=== PATIENT | male | born 1960 | race Caucasian/White ===

== ENCOUNTER → 2020-11-22 08:19 | Outpatient (CLI) | payer OTHER, SELFPAY ==
--- NOTE | 2020-11-22 08:26 | US_ITS ---
PROCEDURE: US LIVER CLINICAL INDICATION: ELEVATED LIVER ENZYMES COMPARISON: No exams were available for comparison FINDINGS: PANCREAS: Unremarkable. No obvious mass or abnormal fluid collection. No ductal dilatation LIVER: Diffuse increased echogenicity of the liver with poor through transmission of sound consistent with hepatic steatosis. No focal liver lesion demonstrated. There is appropriate direction of blood flow within non dilated portal vein. RIGHT KIDNEY: Unremarkable. Normal size and echogenicity. No hydronephrosis GALLBLADDER: No gallstones, gallbladder wall thickening, pericholecystic fluid, or biliary dilatation. IMPRESSION: Hepatic steatosis otherwise negative Dictated by: Edy Sin MD 11/22/2020 09:27 Edy Sin MD in [place] 11/22/2020 09:27
== END ==
PROVIDERS: PCP Internal Medicine Endocrinology, Diabetes & Metabolism; Visit Provider Nurse Practitioner Family
DX: R74.8 Abnormal levels of other serum enzymes (principal)
CPT/HCPCS: 76705

== ENCOUNTER → 2022-04-08 09:47 | Outpatient (CLI) | payer OTHER, SELFPAY ==
--- NOTE | 2022-04-08 | CA_ITS ---
FINAL REPORT TECHNIQUE: Color Doppler, duplex Doppler and compression sonography of the left lower extremity deep venous systems was performed. CLINICAL HISTORY: Left calf pain for 3 weeks. FINDINGS: There is no evidence of deep venous thrombosis from the level of the groin to the calf. The veins are patent and compressible. IMPRESSION: No evidence of deep venous thrombosis left lower extremity. Reviewed, Interpreted and Dictated by Jonah Odell III, MD Transcribed by Billie Wall Authenticated and [facility]
== END ==
PROVIDERS: PCP Family Medicine; Visit Provider Nurse Practitioner Family
DX: R09.89 Other specified symptoms and signs involving the circulatory and respiratory systems (principal)
CPT/HCPCS: 93971

== ENCOUNTER 2022-04-15 07:50 | Day surgery (SDC) | payer OTHER, SELFPAY ==
[2022-04-15] VITALS (17 sets, daily range): BP systolic 116–221; BP diastolic 62–109; PULSE 59–83; RESP 16–20; TEMP 36.6–36.8; O2SAT 92–98; BMI 31.4
--- NOTE | 2022-04-15 07:31 | IR_ITS ---
APPROVED REPORT Patient Location: Outpatient Irrigator Overhead: OTILIO Dunham RT (R) PROCEDURES Catheter placement to the left common femoral artery Left common femoral artery antegrade angiogram with unilateral runoff to the left foot Informed consent was obtained prior to the procedure. COMPLICATIONS NONE Estimated Blood Loss: LESS THAN 10 ML TECHNIQUE 1% lidocaine used anesthetize right groin the right femoral artery was accessed via Salinger technique and a 5 Micronesian sheath was placed in the right femoral artery. A rim catheter was advanced to the distal abdominal aorta and then used to cannulate the left common iliac artery followed by an advantage wire. The catheter was then advanced to the left external iliac artery where external iliac artery antegrade angiography was performed followed by left iliofemoral runoff. At the end the procedure the apparatus was removed the patient was transferred to the postop putting in stable condition for sheath removal ANGIOGRAPHIC RESULTS Left common iliac artery is patent Left external iliac artery is a small caliber vessel with mild atheromatous plaque proximal 20 to 30%. Left internal iliac artery is patent and also small caliber Left common femoral artery is patent and unusually small Left profunda femoris artery is patent Left superficial femoral artery is a small caliber vessel, much smaller than normal, and is patent until the mid segment in which it is then occluded with bridging collaterals and then reconstitutes approximately 70 mm downstream which then retrograde fills the majority of the superficial femoral artery. The left popliteal artery is patent and gives rise to 3 distal vessels which are also small in caliber IMPRESSION Unusually small iliofemoral arteries with a small superficial femoral artery and popliteal artery Occluded mid left SFA PLAN 1. I strongly favor medical management. Patient's small arteries make it a poor candidate for any type of percutaneous or surgical revascularization. Strongly recommend discontinuation of tobacco products 2. LDL goal less than 55 3. Unless patient develops Delta 4 5 or 6 claudication I recommend ongoing medical management. Any attempt at revascularizing the left SFA could easily knock off the collaterals and jeopardize the entire leg subjecting the patient to an [id number] amputation 4. Patient must discontinue tobacco products 5. Physical therapy Electronically signed by : Bobby Huizar MD 04/16/2022 15:07:11
[2022-04-15 07:59] LABS: Coronavirus 19, PCR Not Detected (NotDetected); Influenza A, PCR Not Detected (NotDetected); Influenza B, PCR Not Detected (NotDetected)
[2022-04-15 08:17] LABS: Anion Gap 10.3 mEq/L (5-15); Blood Urea Nitrogen 19 mg/dl (9-20); Calcium 9.3 mg/dl (8.4-10.2); Carbon Dioxide 25 mmol/L (22.0-30.0); Chloride 105 mmol/L (98-107); Creatinine Clearance Estimated 109 mL/min (50-200); Estimated Glomerular Filt Rate 76 ml/min (>60); GFR (African American) 92 ML/MIN (>60); Glucose 197 mg/dl (74-100); Potassium 4.3 mmoL/L (3.5-5.1); Sodium 136 mmol/L (136-145)
[2022-04-15 08:18] LABS: Basophils # 0.3 K/mm3 (0-0.2); Basophils % 2.1 % (0.1-2.0); Eosinophils # 0.6 K/mm3 (0.0-0.4); Eosinophils % 4.5 % (0.1-12.0); Hematocrit 50.5 % (42.0-52.0); Mean Corpuscular HGB Conc 31.6 g/dL (31.8-35.4); Mean Corpuscular Hemoglobin 31.1 pg (27.0-31.2); Mean Corpuscular Volume 98.6 fl (80-94); Mean Platelet Volume 9.1 fl (7.4-10.4); Monocytes # 0.7 K/mm3 (0.1-1.0); Monocytes % 5.5 % (1.7-9.3); Neutrophils # 7.7 K/mm3 (1.8-7.8); Neutrophils % 57.8 % (37.0-80.0); Platelet Count 272 K/mm3 (142-424); Red Blood Count 5.12 M/mm3 (4.60-6.20); Red Cell Distribution Width 13.8 % (11.5-17.5); White Blood Count 13.3 K/mm3 (4.8-10.8)
--- NOTE | 2022-04-15 14:58 | SUR.PHASEII ---
Upon discharge pt informed of 3 new prescriptions. upon teaching of medication pt stated he will not take cholesterol medication. pt informed that that is his choice as a patient but that the doctor does feel as if that will help his leg pain along with PT/OT.
== END 2022-04-15 15:00 | disposition home or self-care (01) ==
PROVIDERS: PCP Family Medicine; Visit Provider Internal Medicine
DX: I70.213 Atherosclerosis of native arteries of extremities with intermittent claudication, bilateral legs (principal); E11.9 Type 2 diabetes mellitus without complications; I11.9 Hypertensive heart disease without heart failure; F17.210 Nicotine dependence, cigarettes, uncomplicated; Z79.4 Long term (current) use of insulin; E03.9 Hypothyroidism, unspecified; Z79.899 Other long term (current) drug therapy; Z20.822 Contact with and (suspected) exposure to COVID-19; E78.5 Hyperlipidemia, unspecified
CPT/HCPCS: 36247; 36415; 75710; 80048; 85025; 99152; C1725; C1769; C1894; C9803; J1644; Q9966; U0003; U0005

== ENCOUNTER → 2022-05-07 06:29 | Outpatient (CLI) | payer OTHER, SELFPAY ==
--- NOTE | 2022-05-07 06:29 | CA_ITS ---
APPROVED REPORT EXAM: Comprehensive 2D, Doppler, and color-flow Echocardiogram Carrot Harvester: Fabiana Whittington CRT Ht: 5 ft 10 in Wt: 218lbs BSA: 2.17 BP: 172/82 mmHg Indications: Abnormal ECG, Diabetes, Hyperlipidemia, Hypertension/HDD, smoker 2D Dimensions LVOT 1.81 cm (M/F) 1.5-2.5 M-Mode Dimensions RVDd 3.10 cm (0.9-2.6) LA Diam 2.83 cm (1.9-4.0) LVDd 3.82 cm (3.5-5.7) Ao Diam 3.45 cm (2.0-3.7) LVDs 2.67 cm (3.5-5.7) IVSd 2.25 cm (0.6-1.1) PWd 0.76 cm (0.6-1.1) EF (Teich) 58.10% FS 30.10% EDV (Teich) 62.70 mL ESV (Teich) 26.30 mL LV Diastology E Decel Time 253.00 (160-240 msec) E/A Ratio 0.87 MED E' 9.00 (< 7 cm/sec) MED A' 11.20 cm/s E'/MED E' Ratio 7.96 (>14) LAT E' 10.20 (<10 cm/sec) LAT A' 9.00 cm/s E/LAT E' Ratio 7.02 (>14) Aortic Valve AO Peak GR. 6.60 mmHg Mitral Valve MV A Velocity 82.00 (40-130 cm/s) E/A Ratio 0.87 MV Decel. Time 253.00 (160-240 ms) Pulmonary Valve PV Peak Velocity 122.00 (50-150 cm/s) Tricuspid Valve TR P. Velocity 183.00 cm/s RAP Estimate 10.00 mmHg RVSP 23.50 mmHg Left Ventricle Left atrium is mildly enlarged, left ventricle is normal size mild concentric left ventricular hypertrophy, estimated ejection fraction 55% with no regional wall motion abnormality, grade 1 diastolic dysfunction seen without tissue Doppler evidence of raise left atrial pressure. Right Ventricle Right atrium and right ventricle are mildly enlarged with normal contractility. Aortic Valve Aortic valve is minimally thickened and fibrosed there is no aortic stenosis or aortic insufficiency. Mitral Valve Mitral valve grossly normal, there is trace mitral regurgitation. Tricuspid Valve Tricuspid valve grossly normal, there is trace tricuspid regurgitation, tricuspid regurgitation jet velocity is inadequate for calculation of the right ventricular systolic pressure. Pulmonic Valve Pulmonic valve is poorly visualized. Great Vessels Aortic root is normal size. Inferior vena cava is poorly visualized. Pericardium No significant pericardial effusion noted. Conclusion 1. Mild biatrial enlargement, normal left ventricular size mild concentric left ventricular hypertrophy, estimated ejection fraction 55% with no regional wall motion abnormality, grade 1 diastolic dysfunction seen without tissue Doppler evidence of raise left atrial pressure. 2. Mildly enlarged right ventricle with normal contractility. 3. Trace mitral and tricuspid regurgitation. 4. No significant pericardial effusion. 5. Inferior vena cava is poorly visualized. Electronically signed by : Jag Bolivar MD 05/08/2022 12:32:14
--- NOTE | 2022-05-07 06:29 | NM_ITS ---
APPROVED REPORT Exam: Nuclear Stress Test Indication: fatigue..abn ecg Patient Location: Outpatient Stress Tech: Teresita Boudreaux MA Tech:Alexandria Leung MEÑOPhyllis RT(R)(N) Ht: 5 ft 10 in Wt: 210 lbs HR: 67 bpm BP: 170/72 mmHg BSA: 2.13 m2 TID: 1.27 BMI: 30.1 History: fatigue..abn ecg Procedure: Patient received a 0.4 mg of intravenous Lexiscan, resting heart rate 67 bpm, resting blood pressure 170/72 mmHg, with Lexiscan maximum heart rate achived was 92 bpm which is Less than 85 % of the maximum predicted heart rate and blood pressure was 180/82 mmHg. With Lexiscan, patient denied any complaint of chest pain. Electrocardiogram Resting electrocardiogram shows sinus rhythm, with Lexiscan there is less than 1.[address] segment depression noted from the baseline EKG. The EKG portion of the Lexiscan is nondiagnostic. Cardiac Stress and Resting SPECT Images: Cardiac Stress and Resting SPECT images were obtained using technetium 99m Myoview 30.0 mCi stress and 9.77 mCi at rest. Gated SPECT for analysis of segmental wall motion and calculation of the ejection fraction also done. Prone images were also obtained. Cardiac stress and rest SPECT images show uniform myocardial activity without segmental perfusion abnormality, computer derived ejection fraction is 53% with no regional wall motion abnormality, right ventricle is normal size and contractility. Conclusion: 1. The EKG portion of the Lexiscan is nondiagnostic. 2. No scintigraphic evidence of reversible ischemia seen, computer derived ejection fraction is 53% with no regional wall motion abnormality, right ventricle is normal size and contractility. 3. Normal Lexiscan Myoview study. Electronically signed by : Jag Bolivar MD 05/08/2022 11:18:52
--- NOTE | 2022-05-07 06:29 | CA_ITS ---
APPROVED REPORT Exam: Pharmacologic Technologist: Teresita Ford, Ht: 5 ft 10 in Wt: 218 lbs BSA: 2.17 m2 HR: 65 bpm BP: 170/72 mmHg Medical History Medications: Lisinopril,,,,, Levothyroxine,,,,, Aspirin,,,,, Atorvastatin,,,,, XaRELTO,,,,, Coreg,,,,, ColCHIcine,,,,, INSULIN Degludec,,,,, Stress Test Details Test: LEXISCAN Reason for pharmacologic stress test: physical limitation. HR Resting HR: 67 bpm Max Heart Rate (APMHR): 159.581003 bpm Max HR Achieved: 92 bpm Target HR (85% APMHR): 135.736506 bpm % of APMHR: 57.86 Recovery HR: 74 bpm BP Resting BP: 170.0/72.0 mmHg Max BP: 180.0/82.0 mmHg Recovery BP: 150.0/72.0 mmHg ECG Resting ECG: NSR, RBBB, Q waves in lead I & aVL Clinical Exercise duration: 04:01 min Highest Stage Achieved: Exercise capacity: 1.0 METs Stress ECG Conclusion Symptoms: Brief SOA & coughing. No CP. Arrhythmias/Ectopy: None ST-T Changes: No significant changes. Conclusion: Unremarkable Lexiscan stress. Myoview images reported sepatately. Test Summary RECOVERY 03:00 . . 77 . 150/ 72 . . REST 06:41 . . 67 . 170/ 72 . . Stage 1 01:00 . . 81 . . . . Stage 2 01:00 . . 89 . 160/ 89 . . Stage 3 01:00 . . 86 . 180/ 82 . . Stage 4 01:00 . . 82 . 164/ 79 . . Stage 4 01:01 . . 82 . 164/ 79 . Stop exercise at 04:01 RECOVERY 01:00 . . 78 . . . . RECOVERY 02:00 . . 76 . 166/ 75 . . RECOVERY 03:00 . . 77 . 150/ 72 . . RECOVERY 03:19 . . 73 . 150/ 72 . . Electronically signed by : Jag Bolivar MD 05/08/2022 10:37:17
== END ==
PROVIDERS: PCP Family Medicine; Visit Provider Internal Medicine
DX: R94.31 Abnormal electrocardiogram [ECG] [EKG] (principal)
CPT/HCPCS: 78452; 93017; 93306; A9502; J2785

== ENCOUNTER → 2022-05-07 06:31 | Outpatient (CLI) | payer SELFPAY ==
--- NOTE | 2022-05-07 06:34 | CT_ITS ---
FINAL REPORT CLINICAL HISTORY: . screening FINDINGS: CT CORONARY CALCIUM SCORE W/O TECHNIQUE: Thin-section axial images were obtained through the heart and coronary arteries per CT coronary calcium score protocol. This study was performed with techniques to keep radiation doses as low as reasonably achievable (ALARA). Individualized dose reduction techniques using automated exposure control or adjustment of mA and/or kV according to the patient's size were employed. FINDINGS: On the axial images, there is calcification predominantly within the right coronary bed with minimal calcified plaque in the circumflex. This gives a coronary artery calcium score of 419.22 based on the Agatston scale. This coronary artery calcium score places the patient within the 76th percentile based on age and gender. The heart size is normal. There is no pleural or pericardial effusion. Limited evaluation of the lungs reveal no suspicious nodule. IMPRESSION: 76th percentile. Reviewed, Interpreted and Dictated by Ivory Sanz MD Transcribed by Daron Dior Authenticated and [facility]
== END ==
PROVIDERS: PCP Family Medicine; Visit Provider Internal Medicine
DX: R94.31 Abnormal electrocardiogram [ECG] [EKG] (principal)
CPT/HCPCS: 75571

== ENCOUNTER 2022-05-28 09:44 | Outpatient (RCR) | payer OTHER, SELFPAY | END 2022-05-28 10:45 | disposition home or self-care (01) | LOC: PT 09:44 | PROVIDERS: Visit Provider Internal Medicine | DX: I73.89 Other specified peripheral vascular diseases | CPT/HCPCS: 93668 ==

== ENCOUNTER → 2022-06-15 11:26 | Outpatient (CLI) | payer OTHER, SELFPAY ==
[2022-06-15 12:07] LABS: Basophils # 0.2 K/mm3 (0-0.2); Basophils % 1.6 % (0.1-2.0); Eosinophils # 0.5 K/mm3 (0.0-0.4); Eosinophils % 3.5 % (0.1-12.0); Hematocrit 48.5 % (42.0-52.0); Hemoglobin 15.5 g/dL (14.1-18.0); Lymphocytes # 4.2 K/mm3 (0.7-4.5); Mean Corpuscular HGB Conc 32.1 g/dL (31.8-35.4); Mean Corpuscular Hemoglobin 30.7 pg (27.0-31.2); Mean Corpuscular Volume 95.8 fl (80-94); Mean Platelet Volume 8.7 fl (7.4-10.4); Monocytes # 0.7 K/mm3 (0.1-1.0); Monocytes % 5.3 % (1.7-9.3); Neutrophils # 8.3 K/mm3 (1.8-7.8); Neutrophils % 59.6 % (37.0-80.0); Platelet Count 289 K/mm3 (142-424); Red Blood Count 5.06 M/mm3 (4.60-6.20); Red Cell Distribution Width 13.6 % (11.5-17.5); White Blood Count 13.8 K/mm3 (4.8-10.8)
[2022-06-15 12:30] LABS: Alanine Aminotransferase 30 U/L (12-78); Albumin Level 4.3 g/dl (3.5-5.0); Albumin/Globulin Ratio 1.3 (1.1-1.8); Alkaline Phosphatase 119 U/L (38-126); Amylase 49 U/L (30-110); Aspartate Amino Transferase 28 U/L (17-59); Bilirubin,Total 0.4 mg/dl (0.2-1.3); Blood Urea Nitrogen 14 mg/dl (9-20); Calcium 10.1 mg/dl (8.4-10.2); Carbon Dioxide 25 mmol/L (22.0-30.0); Chloride 96 mmol/L (98-107); Estimated Glomerular Filt Rate 98 ml/min (>60); GFR (African American) 119 ML/MIN (>60); Globulin 3.2 g/dL (1.3-3.2); Glucose 308 mg/dl (74-100); Lipase 109 U/L (23-300); Potassium 4.5 mmoL/L (3.5-5.1); Total Protein,Serum 7.5 g/dl (6.3-8.2)
[2022-06-15 13:44] LABS: Anion Gap 18.5 mEq/L (5-15); Sodium 135 mmol/L (136-145)
== END ==
LOC: LAB 11:27
PROVIDERS: PCP Nurse Practitioner Family; Visit Provider Nurse Practitioner Family
DX: R10.30 Lower abdominal pain, unspecified (principal)
CPT/HCPCS: 36415; 80053; 82150; 83690; 85025

== ENCOUNTER → 2022-06-16 12:48 | Outpatient (CLI) | payer OTHER, SELFPAY ==
--- NOTE | 2022-06-16 12:58 | CT_ITS ---
FINAL REPORT TECHNIQUE: After the administration of oral and intravenous contrast, axial images were obtained through the abdomen and pelvis by computed tomography. The study was performed with techniques to keep radiation dose as low as reasonably achievable, (ALARA). Individual dose reduction techniques using automated exposure control or adjustment of mA and/or kV according to the patient's size were employed. CLINICAL HISTORY: LOWER ABD PAIN, LEFT SIDED ABD PAIN FINDINGS: Abdomen: The lung bases are clear. The liver parenchyma is homogeneous. The gallbladder is present. The spleen, pancreas and adrenals appear unremarkable. There are multiple cortical defects in the left kidney which may be related to prior infarcts. The aorta is normal in caliber. A right iliac stent is present in the proximal right common iliac artery. There is no free fluid or adenopathy. Pelvis: The appendix is not identified. There is abnormal mucosal thickening within the proximal sigmoid colon. These findings are well seen on images 91-94 of series 2. There is mild pericolonic inflammation. These findings are favored to represent acute colitis. There is no evidence of diverticulitis. The urinary bladder is unremarkable. There is no free fluid or adenopathy. IMPRESSION: Abnormal mucosal thickening in the proximal sigmoid colon consistent with acute infectious or inflammatory colitis. Reviewed, Interpreted and Dictated by Shlomo Alcantara MD Transcribed by Billie Wall Authenticated and [facility]
== END ==
LOC: RAD 12:49
PROVIDERS: PCP Nurse Practitioner Family; Visit Provider Nurse Practitioner Family
DX: R10.9 Unspecified abdominal pain (principal); R10.32 Left lower quadrant pain
CPT/HCPCS: 74177; Q9967

== ENCOUNTER → 2022-11-20 07:44 | Outpatient (CLI) | payer OTHER, SELFPAY ==
--- NOTE | 2022-11-20 | CA_ITS ---
FINAL REPORT TECHNIQUE: Grayscale, color Doppler and duplex Doppler ultrasound of the kidneys, aorta and renal arteries was performed. Multiple velocities were measured. CLINICAL HISTORY: HTN,DM,SMOKER,PAD FINDINGS: Aorta velocity: 88.2 cm/sec Right kidney: 11.8 cm. No evidence of hydronephrosis or mass. Right intrarenal RI: 0.7, normal Right renal artery velocity: 247 cm/sec. Right RAR (Renal artery-Aortic Ratio): 2.8 consistent with less than 60% stenosis Left Kidney: 12.6 cm. No evidence of hydronephrosis or mass. Left intrarenal RI: 0.78, borderline normal Left renal artery velocity: 303 cm/sec. Left RAR (Renal Artery-Aortic Ratio): 3.4 consistent with greater than 60% stenosis. IMPRESSION: Less than 60% stenosis of the right renal artery. Greater than 60% stenosis of the left renal artery. Correlation with catheter angiogram is recommended. Reviewed, Interpreted and Dictated by Jonah Odell III, MD Transcribed by Alisha Horowitz Authenticated and [facility]
== END ==
LOC: RT 07:45
PROVIDERS: PCP Nurse Practitioner Family; Visit Provider Nurse Practitioner
DX: I45.2 Bifascicular block (principal); I10 Essential (primary) hypertension
CPT/HCPCS: 93976

== ENCOUNTER 2022-12-09 10:46 | Emergency (ER) | payer OTHER, SELFPAY ==
[2022-12-09] VITALS (10 sets, daily range): BP systolic 143–191; BP diastolic 77–107; PULSE 63–76; RESP 11–17; TEMP 36.6; O2SAT 97–99; BMI 30.1
--- NOTE | 2022-12-09 10:49 | XR_ITS ---
FINAL REPORT CLINICAL HISTORY: soa FINDINGS: SINGLE-VIEW CHEST The heart size is normal. The mediastinum is normal. There are mild chronic changes at the bases. There is no pneumothorax. IMPRESSION: No acute cardiopulmonary process. Reviewed, Interpreted and Dictated by Shlomo Alcantara MD Transcribed by Katy Colon Authenticated and [facility]
--- NOTE | 2022-12-09 10:59 | HMH.EDGENADL ---
Discharge Plan Disposition Patient Disposition: Home, Self-Care Prescriptions Prescriptions: No Action insulin degludec [Tresiba FlexTouch U-100] 100 unit/mL (3 mL) insulin pen 32 unit SUB-Q QHS levothyroxine 125 mcg tablet 125 mcg PO DAILY Label Comments: TAKE 1 TABLET BY MOUTH EVERY MORNING ON AN EMPTY STOMACH metformin 750 mg tablet extended release 24 hr 750 mg PO HS colchicine 0.6 mg tablet 0.6 mg PO BID PRN (Reason: gout) Qty: 33 2RF Rx Instructions: Take 1.2 mg now x 1 dose then 0.6 mg one hour later x 1 dose. Take 0.6 mg twice daily thereafter. lisinopril 20 mg tablet See Rx Instructions .ROUTE .COMPLEX Qty: 90 0RF Dose Instruction: TAKE 1 TABLET BY MOUTH DAILY Rx Instructions: TAKE 1 TABLET BY MOUTH DAILY Xarelto 2.5 mg tablet See Rx Instructions .ROUTE .COMPLEX Qty: 60 3RF Dose Instruction: TAKE 1 TABLET BY MOUTH TWICE A DAY Rx Instructions: TAKE 1 TABLET BY MOUTH TWICE A DAY carvedilol 6.25 mg tablet See Rx Instructions .ROUTE .COMPLEX Qty: 180 1RF Dose Instruction: TAKE 1 TABLET BY MOUTH TWICE A DAY TAKE WITH FOOD OR A MEAL Rx Instructions: TAKE 1 TABLET BY MOUTH TWICE A DAY TAKE WITH FOOD OR A MEAL aspirin 81 mg tablet,chewable See Rx Instructions .ROUTE .COMPLEX Qty: 90 1RF Dose Instruction: TAKE 1 TABLET BY MOUTH EVERY DAY Rx Instructions: TAKE 1 TABLET BY MOUTH EVERY DAY Referrals Follow up/Referrals: Provider,Referral, MD [Referring] - See instructions Activity Restrictions/Add. Instructions Additional Instructions/Restrictions: Return immediately for any other chest pain shortness of air or any other concerns within 8 hours otherwise follow-up with your general manager land department within the next few days as recommended. Clinical Impressions Clinical Impression: Chest pain Discharge ED Provider: Diogo Miller General Adult HPI General Chief complaint: Chest Pain Stated complaint: chest pain Time Seen by Provider: 12/09/22 10:50 History of Present Illness HPI narrative: 61-year-old male with history of hyperlipidemia peripheral artery disease presents with chest pain for 3 days radiating to his left side of his neck and left arm jaw constant. He has had no aspirin or nitroglycerin today. He was at cardiology office and had EKG changes and was sent to the emergency department for further evaluation. At this time he does not have headache numbness weakness or tingling arms or legs. No abdominal pain nausea or vomiting. Chest pain is not tearing or ripping or going to his back. Not coughing up blood or prior blood clots recent travel or surgery. Related Data Home Medications Medication Instructions Recorded Confirmed insulin degludec 100 unit/mL (3 32 unit SQ QHS . 11/10/22 12/09/22 mL) subcutaneous pen (Tresiba FlexTouch U-100 insulin) levothyroxine 125 mcg tablet 125 mcg PO DAILY 11/10/22 12/09/22 metformin 750 mg tablet,extended 750 mg PO HS 11/10/22 12/09/22 release 24 hr Previous Rx's Medication Instructions Recorded colchicine 0.6 mg tablet 0.6 mg PO BID PRN gout #33 tabs 10/25/18 lisinopril 20 mg tablet See Rx Instructions .Route 06/15/22 .COMPLEX #90 tabs carvedilol 6.25 mg tablet See Rx Instructions .Route 08/17/22 .COMPLEX #180 tabs rivaroxaban 2.5 mg tablet (Xarelto) See Rx Instructions .Route 08/17/22 .COMPLEX #60 tabs aspirin 81 mg chewable tablet See Rx Instructions .Route 10/19/22 .COMPLEX #90 tabs Allergies Allergy/AdvReac Type Severity Reaction Status Date / Time Penicillins Allergy Mild Verified 12/09/22 10:26 [facility] Disclaimer: The information contained in this section may have been updated after the patient was seen, as this information can be updated by other users. Medical History Claudication Diabetes Edema of both legs HHD (hypertensive heart disease) HLD (hyperlipid
[2022-12-09 11:09] LABS: Basophils # 0.1 K/mm3 (0-0.2); Eosinophils # 0.8 K/mm3 (0.0-0.4); Eosinophils % 6.2 % (0.1-12.0); Hematocrit 49.3 % (42.0-52.0); Hemoglobin 15.6 g/dL (14.1-18.0); Lymphocytes # 4.1 K/mm3 (0.7-4.5); Lymphocytes % 31.9 % (10-50); Mean Corpuscular HGB Conc 31.6 g/dL (31.8-35.4); Mean Corpuscular Hemoglobin 30.6 pg (27.0-31.2); Mean Platelet Volume 9.1 fl (7.4-10.4); Monocytes # 0.7 K/mm3 (0.1-1.0); Monocytes % 5.6 % (1.7-9.3); Neutrophils # 7.1 K/mm3 (1.8-7.8); Neutrophils % 55.3 % (37.0-80.0); Platelet Count 283 K/mm3 (142-424); Red Blood Count 5.08 M/mm3 (4.60-6.20); Red Cell Distribution Width 14.3 % (11.5-17.5); White Blood Count 12.8 K/mm3 (4.8-10.8)
[2022-12-09 11:13] LABS: Chloride 96 mmol/L (98-107); Potassium 4.4 mmoL/L (3.5-5.1); Sodium 134 mmol/L (136-145)
[2022-12-09 11:15] LABS: Blood Urea Nitrogen 16 mg/dl (9-20); Estimated Glomerular Filt Rate 86 ml/min (>60); GFR (African American) 104 ML/MIN (>60)
[2022-12-09 11:16] LABS: Alanine Aminotransferase 33 U/L (12-78); Albumin Level 4.3 g/dl (3.5-5.0); Albumin/Globulin Ratio 1.1 (1.1-1.8); Alkaline Phosphatase 61 U/L (38-126); Anion Gap 18.4 mEq/L (5-15); Aspartate Amino Transferase 36 U/L (17-59); Bilirubin,Total 0.5 mg/dl (0.2-1.3); Calcium 9.4 mg/dl (8.4-10.2); Carbon Dioxide 24 mmol/L (22.0-30.0); Globulin 3.9 g/dL (1.3-3.2); Glucose 246 mg/dl (74-100); Total Protein,Serum 8.2 g/dl (6.3-8.2)
[2022-12-09 11:34] LABS: Troponin I < 0.01 ng/ml (0.00-0.034)
--- NOTE | 2022-12-09 11:46 | PC.NURSE ---
rounded on pt no complaints at this time, call light at bs
--- NOTE | 2022-12-09 12:30 | PC.NURSE ---
Rounded on patient; pt reports he is uncomfortable in the bed. Offered patient a recliner and he agreed to that. Pt now sititn erwin recliner, hooked to school lunch monitor with call light in reach. No other needs at this time
[2022-12-09 14:02] LABS: Troponin I 0.02 ng/ml (0.00-0.034)
== END 2022-12-09 14:47 | disposition home or self-care (01) ==
PROVIDERS: Emergency Provider Emergency Medicine; PCP Family Medicine
DX: R07.9 Chest pain, unspecified (principal); M79.602 Pain in left arm; R68.84 Jaw pain; F17.200 Nicotine dependence, unspecified, uncomplicated
CPT/HCPCS: 71045; 80053; 84484; 85025; 99285

== ENCOUNTER 2022-12-29 08:51 | Day surgery (SDC) | payer OTHER, SELFPAY ==
[2022-12-29] VITALS (15 sets, daily range): BP systolic 105–167; BP diastolic 60–97; PULSE 55–72; RESP 16–20; O2SAT 95–100; BMI 32.4
--- NOTE | 2022-12-29 07:08 | IR_ITS ---
APPROVED REPORT Patient Location: Outpatient PROCEDURES Selective coronary angiogram Left heart catheterization Left ventriculogram Drug-eluting stent deployment to the proximal mid and distal dominant right coronary in a contiguous manner Drug-eluting stent deployment to the proximal and mid circumflex artery INDICATION Coronary artery disease, Accelerated angina pectoris Informed consent was obtained prior to the procedure. COMPLICATIONS None Estimated Blood Loss: Less than 10 ML TECHNIQUE One percent lidocaine used to anesthetize the right anterior aspect of the wrist. The right radial artery was accessed via the Seldinger technique. A 6 Bengali sheath was placed in the right radial artery. 150 mg magnesium sulfate, 800 mcg of nitroglycerin, 1mg Lidocaine and 5000 U Heparin were given through the arterial sheath. The papa catheter was also used to perform selective coronary angiography. At the end the diagnostic angiogram therapeutic heparin was administered giving a therapeutic ACT and the guide catheter was placed in the left main artery followed by Choice PT extra-support wire. A 3.5 x 22 mm David frontier stent was deployed at 14 iliana reducing the stenosis. An additional 3.75 x 12 mm noncompliant balloon was deployed at 20 iliana in the mid and proximal segment further post dilate the stenotic area. JAYY-3 flow was present before and after the procedure. Patient had intense radial artery spasm that required several aliquots of intra arterial nitroglycerin as well as 2.5 mg of verapamil and 200 mcg of intra-arterial night pride. The guide catheter was placed in the right coronary followed by Choice PT extra-support wire. Two 4 mm x 38 mm [place] frontier stents were placed in the proximal mid and distal segment in a contiguous manner. The first stent was placed proximally at 14 iliana with the distal stent being placed at 14 iliana. The balloon was brought back and deployed at 20 and 22 iliana to further post dilate. JAYY II flow was present at the beginning of the procedure with JAYY-3 flow at the end the procedure. At the end the procedure the apparatus was removed the sheath was removed and hemostasis was achieved using TR banding patient was transferred to the postop putting in stable condition ANGIOGRAPHIC RESULTS The left main artery Normal The left anterior descending artery Has proximal and mid vessel 10 to 20% stenoses The circumflex artery Has a proximal 50 and 70% stenosis The right coronary artery Is massively large and dominant and has proximal 50 followed by critical greater than 90% stenosis followed by additional 50% stenoses The NESBITT ventriculogram reveals 60% The left ventricular end-diastolic pressure 10 mmHg IMPRESSION Critical coronary artery disease involving a dominant right coronary artery accompanied by JAYY II flow which was successfully stented and reconstructed reducing all stenoses to 0% and giving inline JAYY-3 flow distally Severe disease in the proximal circumflex artery reduced to 0% with 1 drug-eluting stent PLAN 1. Dual antiplatelet therapy with Brilinta 90 twice daily and aspirin 81 mg daily 2. LDL less than 55 but she with high intensity statin 3. Risk factor modification 4. Cardiac rehabilitation 5. Avoidance of tobacco products Electronically signed by : Bobby Huizar MD 12/29/2022 13:04:49
[2022-12-29 10:04] LABS: Basophils # 0.2 K/mm3 (0-0.2); Basophils % 1.3 % (0.1-2.0); Chloride 99 mmol/L (98-107); Eosinophils # 0.7 K/mm3 (0.0-0.4); Eosinophils % 5.3 % (0.1-12.0); Hematocrit 45.3 % (42.0-52.0); Hemoglobin 14.7 g/dL (14.1-18.0); Lymphocytes # 4.2 K/mm3 (0.7-4.5); Lymphocytes % 32.4 % (10-50); Mean Corpuscular HGB Conc 32.5 g/dL (31.8-35.4); Mean Corpuscular Hemoglobin 31.1 pg (27.0-31.2); Mean Corpuscular Volume 95.8 fl (80-94); Mean Platelet Volume 8.7 fl (7.4-10.4); Monocytes # 0.8 K/mm3 (0.1-1.0); Monocytes % 6.5 % (1.7-9.3); Neutrophils % 54.5 % (37.0-80.0); Platelet Count 323 K/mm3 (142-424); Red Blood Count 4.73 M/mm3 (4.60-6.20); Sodium 138 mmol/L (136-145); White Blood Count 12.9 K/mm3 (4.8-10.8)
[2022-12-29 10:05] LABS: Potassium 4.3 mmoL/L (3.5-5.1)
[2022-12-29 10:07] LABS: Blood Urea Nitrogen 10 mg/dl (9-20); Creatinine Clearance Estimated 111 mL/min (50-200); Estimated Glomerular Filt Rate 86 ml/min (>60); GFR (African American) 103 ML/MIN (>60)
[2022-12-29 10:08] LABS: Anion Gap 17.3 mEq/L (5-15); Calcium 9.8 mg/dl (8.4-10.2); Carbon Dioxide 26 mmol/L (22.0-30.0); Glucose 159 mg/dl (74-100)
[2022-12-29 12:31] LABS: CATHL Activated Clotting Time 397 SEC (74-125)
--- NOTE | 2022-12-29 14:41 | P.CONPHA_ITS ---
PHA Hunting Sales Associate Discharge Med Residential Builder: Tim Ricketts has received discharge medication counseling on the following medications: ASPIRIN 81 MG DAILY CARVEDILOL 6.25 MG BID LISINOPRIL 20 MG DAILY BRILINTA 90 MG BID MD NOT STARTING STATIN DUE TO PATIENT REFUSING WITH MUSCLE PAIN.
== END 2022-12-29 15:07 | disposition home or self-care (01) ==
PROVIDERS: PCP Nurse Practitioner Family; Visit Provider Internal Medicine
DX: R07.9 Chest pain, unspecified (principal); I70.1 Atherosclerosis of renal artery; F17.210 Nicotine dependence, cigarettes, uncomplicated; E11.9 Type 2 diabetes mellitus without complications; Z79.4 Long term (current) use of insulin; Z79.899 Other long term (current) drug therapy; I25.118 Atherosclerotic heart disease of native coronary artery with other forms of angina pectoris; I11.9 Hypertensive heart disease without heart failure; I45.2 Bifascicular block; I45.10 Unspecified right bundle-branch block; Z95.820 Peripheral vascular angioplasty status with implants and grafts
CPT/HCPCS: 80048; 85025; 85347; 92928; 93458; 99152; 99153; C1725; C1760; C1769; C1876; C9600; J1644; Q9967

== ENCOUNTER 2022-12-30 18:28 | Emergency (ER) | payer OTHER, SELFPAY ==
[2022-12-30 18:29] VITALS: BP 199/90; PULSE 81; RESP 19; TEMP 36.6; O2SAT 97; BMI 31.5
--- NOTE | 2022-12-30 18:36 | ECG_ITS ---
APPROVED REPORT Exam: Resting ECG HR:88 bpm ECG Measurements Heart Rate 88 AXES VT 176 P 44 QRSd 140 QRS 90 QT 375 T 0 QTc 421 Conclusion SINUS RHYTHM RIGHT BUNDLE BRANCH BLOCK [120+ ms QRS DURATION, UPRIGHT V1, 40+ ms S IN I/aVL/V4/V5/V6] ABNORMAL ECG UNCONFIRMED REPORT Electronically signed by : Clovis Miller MD 12/30/2022 21:13:52
--- NOTE | 2022-12-30 18:38 | XR_ITS ---
PROCEDURE INFORMATION: Exam: XR Chest Exam date and time: 12/30/2022 6:39 PM Age: 62 years old Clinical indication: Shortness of breath; Additional info: SOA TECHNIQUE: Imaging protocol: Radiologic exam of the chest. Views: 1 view. Total images: 1 COMPARISON: CR XR CHEST PORTABLE 12/09/2022 11:17 AM FINDINGS: Tubes, catheters and devices: EKG leads are present. Lungs: Unremarkable. No consolidation. No pulmonary vascular congestion or edema. Pleural spaces: Unremarkable. No pleural effusion. No pneumothorax. Heart/Mediastinum: Unremarkable. No cardiomegaly. No mediastinal widening or hilar enlargement. Vasculature: Atherosclerotic thoracic aorta. Bones/joints: Multiple remote healed bilateral rib fractures. Mild degenerative changes thoracic spine and bilateral shoulders/AC joints. IMPRESSION: No radiographically acute cardiopulmonary process.
[2022-12-30 18:58] LABS: Basophils # 0.2 K/mm3 (0-0.2); Basophils % 1.1 % (0.1-2.0); Chloride 99 mmol/L (98-107); Eosinophils # 0.6 K/mm3 (0.0-0.4); Eosinophils % 4.6 % (0.1-12.0); Hematocrit 47.3 % (42.0-52.0); Hemoglobin 15.2 g/dL (14.1-18.0); Lymphocytes # 3.6 K/mm3 (0.7-4.5); Lymphocytes % 26.3 % (10-50); Mean Corpuscular HGB Conc 32.2 g/dL (31.8-35.4); Mean Corpuscular Hemoglobin 31.1 pg (27.0-31.2); Mean Corpuscular Volume 96.7 fl (80-94); Mean Platelet Volume 8.3 fl (7.4-10.4); Monocytes # 0.9 K/mm3 (0.1-1.0); Monocytes % 6.2 % (1.7-9.3); Neutrophils # 8.6 K/mm3 (1.8-7.8); Neutrophils % 61.8 % (37.0-80.0); Platelet Count 321 K/mm3 (142-424); Red Blood Count 4.89 M/mm3 (4.60-6.20); Red Cell Distribution Width 14.1 % (11.5-17.5); White Blood Count 13.9 K/mm3 (4.8-10.8)
[2022-12-30 18:59] VITALS: BP 179/75; PULSE 82; RESP 20; O2SAT 97
[2022-12-30 18:59] LABS: Sodium 137 mmol/L (136-145)
[2022-12-30 19:00] VITALS: BP 183/82; PULSE 84; RESP 20; O2SAT 97
[2022-12-30 19:01] LABS: Alanine Aminotransferase 35 U/L (12-78); Aspartate Amino Transferase 45 U/L (17-59); Blood Urea Nitrogen 16 mg/dl (9-20); Creatinine Clearance Estimated 108 mL/min (50-200); Estimated Glomerular Filt Rate 76 ml/min (>60); GFR (African American) 92 ML/MIN (>60)
[2022-12-30 19:02] LABS: Albumin Level 4.2 g/dl (3.5-5.0); Alkaline Phosphatase 80 U/L (38-126); Bilirubin,Total 0.5 mg/dl (0.2-1.3); Calcium 9.5 mg/dl (8.4-10.2); Carbon Dioxide 23 mmol/L (22.0-30.0); Globulin 4.3 g/dL (1.3-3.2); Glucose 238 mg/dl (74-100); Total Protein,Serum 8.5 g/dl (6.3-8.2)
--- NOTE | 2022-12-30 19:06 | PC.NURSE ---
RT notified of tx
[2022-12-30 19:11] LABS: NT Pro Brain Natriuretic Pep. 190 pg/mL (0-125)
[2022-12-30 19:16] LABS: Troponin I 0.65 ng/ml (0.00-0.034)
[2022-12-30 19:31] VITALS: BP 174/86; PULSE 87; RESP 21; O2SAT 98
--- NOTE | 2022-12-30 19:49 | PC.NURSE ---
paged dr torres
--- NOTE | 2022-12-30 19:50 | PC.NURSE ---
on phone with dr torres
--- NOTE | 2022-12-30 19:52 | HMH.EDGENADL ---
Discharge Plan Disposition Patient Disposition: Home, Self-Care Condition: Good Prescriptions Prescriptions: New clopidogrel [Plavix] 75 mg tablet 75 mg PO DAILY Qty: 30 0RF No Action insulin degludec [Tresiba FlexTouch U-100] 100 unit/mL (3 mL) insulin pen 32 unit SUB-Q QHS levothyroxine 125 mcg tablet 125 mcg PO DAILY Label Comments: TAKE 1 TABLET BY MOUTH EVERY MORNING ON AN EMPTY STOMACH metformin 750 mg tablet extended release 24 hr 750 mg PO HS Hold Instructions: Resume on 01/01/23. hold for 2 days colchicine 0.6 mg tablet 0.6 mg PO BID PRN (Reason: gout) Qty: 33 2RF Rx Instructions: Take 1.2 mg now x 1 dose then 0.6 mg one hour later x 1 dose. Take 0.6 mg twice daily thereafter. carvedilol 6.25 mg tablet See Rx Instructions .ROUTE .COMPLEX Rx Instructions: TAKE 1 TABLET BY MOUTH TWICE A DAY TAKE WITH FOOD OR A MEAL lisinopril 20 mg tablet See Rx Instructions .ROUTE .COMPLEX Rx Instructions: TAKE 1 TABLET BY MOUTH DAILY aspirin 81 mg tablet,chewable See Rx Instructions .ROUTE .COMPLEX Rx Instructions: TAKE 1 TABLET BY MOUTH EVERY DAY Brilinta 90 mg tablet 90 mg PO Q12H Referrals Follow up/Referrals: Tamar Anne APRN [Primary Care Provider] - See instructions Bobby Huizar MD [Staff Physician] - See instructions Clinical Impressions Clinical Impression: Dyspnea Instructions Patient Instructions: DI for Shortness of Breath Print Language Print Language: Macanese Discharge ED Provider: Jonel Wolff General Adult HPI General Chief complaint: Shortness of Breath/Dyspnea Stated complaint: 12/30 3 stents in heart SOA Time Seen by Provider: 12/30/22 19:58 Mode of Arrival: Ambulatory Source of Information: Patient Limitations: No Limitations Description of Symptoms (Recalled from ER Triage Doc. by RN): 62 M presents from home with c/o shortness of breath. He had 3 stents placed yesterday by cardiology here. Denies any pain. Nothing makes his dyspnea better, unless he's lying flat that he notices it might be worse. Patient started on Brillinta yesterday. History of Present Illness HPI narrative: Patient presents to the emergency department with dyspnea. The patient just had a heart cath yesterday and stenting x3. He denies any chest pain. Any fever, chills, cough, congestion. Denies any abdominal pain. He was placed on Brilinta yesterday and discharged home. Related Data Home Medications Medication Instructions Recorded Confirmed insulin degludec 100 unit/mL (3 32 unit SQ QHS . 11/10/22 12/30/22 mL) subcutaneous pen (Tresiba FlexTouch U-100 insulin) levothyroxine 125 mcg tablet 125 mcg PO DAILY thyroid 11/10/22 12/30/22 metformin 750 mg tablet,extended 750 mg PO HS Diabetes 11/10/22 12/30/22 release 24 hr aspirin 81 mg chewable tablet See Rx Instructions .Route 12/29/22 12/30/22 .COMPLEX CAD carvedilol 6.25 mg tablet See Rx Instructions .Route 12/29/22 12/30/22 .COMPLEX High blood pressure lisinopril 20 mg tablet See Rx Instructions .Route 12/29/22 12/30/22 .COMPLEX High blood pressure ticagrelor 90 mg tablet (Brilinta) 90 mg PO Q12H Blood thinner 12/30/22 12/30/22 Previous Rx's Medication Instructions Recorded colchicine 0.6 mg tablet 0.6 mg PO BID PRN gout #33 tabs 10/25/18 clopidogrel 75 mg tablet (Plavix) 75 mg PO DAILY #30 tabs 12/30/22 Allergies Allergy/AdvReac Type Severity Reaction Status Date / Time Penicillins Allergy Mild Unknown Verified 12/29/22 14:44 allergy reaction [id number] Reductase AdvReac Intermediate Muscle Pain Verified 12/29/22 14:44 Inhibitor PFSH PFSH Disclaimer: The information contained in this section may have been updated after the patient was seen, as this information can be updated by other users. Medical History Claudication Diabetes E
[2022-12-30 19:54] VITALS: PULSE 74; PULSE 75
[2022-12-30 20:02] VITALS: BP 177/84; PULSE 80; RESP 19; TEMP 36.6; O2SAT 96
== END 2022-12-30 20:02 | disposition home or self-care (01) ==
PROVIDERS: Emergency Provider Emergency Medicine; PCP Nurse Practitioner Family
DX: R06.02 Shortness of breath (principal); I45.19 Other right bundle-branch block; F17.200 Nicotine dependence, unspecified, uncomplicated
CPT/HCPCS: 71045; 80053; 83880; 84484; 85025; 93005; 99285

== ENCOUNTER 2023-09-07 14:32 | Outpatient (CLI) | payer OTHER, SELFPAY ==
[2023-09-07 15:01] LABS: Basophils # 0.2 K/mm3 (0-0.2); Basophils % 1.4 % (0.1-2.0); Eosinophils # 0.7 K/mm3 (0.0-0.4); Eosinophils % 5.3 % (0.1-12.0); Hematocrit 45.6 % (42.0-52.0); Hemoglobin 15.4 g/dL (14.1-18.0); Lymphocytes # 4.3 K/mm3 (0.7-4.5); Lymphocytes % 33.4 % (10-50); Mean Corpuscular HGB Conc 33.7 g/dL (31.8-35.4); Mean Platelet Volume 8.7 fl (7.4-10.4); Monocytes # 0.7 K/mm3 (0.1-1.0); Monocytes % 5.7 % (1.7-9.3); Neutrophils % 54.2 % (37.0-80.0); Platelet Count 265 K/mm3 (142-424); Red Cell Distribution Width 13.7 % (11.5-17.5); White Blood Count 12.9 K/mm3 (4.8-10.8)
[2023-09-07 15:09] LABS: Hemoglobin A1C 8.9 % (4.0-6.0)
[2023-09-07 15:26] LABS: Alanine Aminotransferase 41 U/L (12-78); Albumin Level 4.3 g/dl (3.5-5.0); Alkaline Phosphatase 84 U/L (38-126); Anion Gap 14.3 mEq/L (5-15); Aspartate Amino Transferase 38 U/L (17-59); Bilirubin,Direct 0.2 mg/dl (0.0-0.4); Bilirubin,Indirect 0.1 mg/dL (0.0-0.9); Bilirubin,Total 0.3 mg/dl (0.2-1.3); Bilirubin,Unconjugated 0.1 mg/dL (0.0-1.1); Blood Urea Nitrogen 15 mg/dl (9-20); Calcium 9.9 mg/dl (8.4-10.2); Carbon Dioxide 22 mmol/L (22.0-30.0); Chloride 102 mmol/L (98-107); Chol/HDL Ratio 6.9 (1-3.5); Cholesterol 271 mg/dl (140-200); Estimated Glomerular Filt Rate 68 ml/min (>60); GFR (African American) 82 ML/MIN (>60); Glucose 292 mg/dl (74-100); HDL Cholesterol 39 mg/dl (40-60); Potassium 4.3 mmoL/L (3.5-5.1); Sodium 134 mmol/L (136-145); Total Protein,Serum 7.7 g/dl (6.3-8.2)
[2023-09-07 15:36] LABS: Triglycerides 600 mg/dl (30-150)
[2023-09-07 15:38] LABS: Direct LDL Cholesterol 118.33 mg/dL (100-129)
[2023-09-07 15:43] LABS: Free T4 (Free Thyroxine) 1.22 ng/dl (0.78-2.19)
[2023-09-07 15:57] LABS: Thyroid Stimulating Hormone 4.58 uIU/mL (0.465-4.68)
== END 2023-09-07 23:59 ==
PROVIDERS: PCP Nurse Practitioner Family; Visit Provider Nurse Practitioner Family
DX: E11.9 Type 2 diabetes mellitus without complications (principal); E78.5 Hyperlipidemia, unspecified; I11.9 Hypertensive heart disease without heart failure; I25.10 Atherosclerotic heart disease of native coronary artery without angina pectoris; I45.2 Bifascicular block; I70.1 Atherosclerosis of renal artery; I73.9 Peripheral vascular disease, unspecified; Z72.0 Tobacco use; Z79.4 Long term (current) use of insulin; Z79.84 Long term (current) use of oral hypoglycemic drugs
CPT/HCPCS: 36415; 80048; 80061; 80076; 83036; 83735; 84439; 84443; 85025

== ENCOUNTER 2023-11-01 16:59 | Outpatient (CLI) | payer OTHER, SELFPAY ==
[2023-11-01 17:41] LABS: Alanine Aminotransferase 41 U/L (12-78); Albumin Level 4.3 g/dl (3.5-5.0); Albumin/Globulin Ratio 1.2 (1.1-1.8); Alkaline Phosphatase 91 U/L (38-126); Anion Gap 14.8 mEq/L (5-15); Aspartate Amino Transferase 42 U/L (17-59); Bilirubin,Total 0.3 mg/dl (0.2-1.3); Blood Urea Nitrogen 17 mg/dl (9-20); Carbon Dioxide 23 mmol/L (22.0-30.0); Chloride 105 mmol/L (98-107); Estimated Glomerular Filt Rate 61 ml/min (>60); GFR (African American) 74 ML/MIN (>60); Globulin 3.5 g/dL (1.3-3.2); Glucose 110 mg/dl (74-100); Potassium 4.8 mmoL/L (3.5-5.1); Sodium 138 mmol/L (136-145); Total Protein,Serum 7.8 g/dl (6.3-8.2)
[2023-11-01 17:56] LABS: Hemoglobin A1C 8.1 % (4.0-6.0)
[2023-11-04 11:14] LABS: Triglycerides 280 mg/dl (30-150)
== END 2023-11-01 23:59 ==
LOC: LAB.DROPOF 17:00
PROVIDERS: PCP Nurse Practitioner Family; Visit Provider Nurse Practitioner Family
DX: E11.9 Type 2 diabetes mellitus without complications (principal); E78.2 Mixed hyperlipidemia; Z79.4 Long term (current) use of insulin; Z79.84 Long term (current) use of oral hypoglycemic drugs; Z79.85 Long-term (current) use of injectable non-insulin antidiabetic drugs
CPT/HCPCS: 36415; 80053; 83036; 84478

== ENCOUNTER 2024-01-26 12:27 | Outpatient (CLI) | payer OTHER, SELFPAY ==
--- NOTE | 2024-01-26 12:40 | XR_ITS ---
FINAL REPORT CLINICAL HISTORY: left hand pain, swelling COMPARISON: None FINDINGS: Two views of the left hand were obtained. There is no acute fracture or dislocation. There are moderate degenerative changes of the 1st carpometacarpal joint. There are mild degenerative changes of the DIP and PIP joints. There is no acute soft tissue abnormality. IMPRESSION: Idgu-ax-vogigwzp degenerative changes. Reviewed, Interpreted and Dictated by Ivory Sanz MD Transcribed by Mary Hines Authenticated and [facility]
--- NOTE | 2024-01-26 12:40 | XR_ITS ---
FINAL REPORT CLINICAL HISTORY: left wrist pain, swelling COMPARISON: None FINDINGS: LEFT WRIST Three views show no evidence of an acute, displaced fracture or dislocation of the visualized bony architecture. There are mild degenerative changes of the carpus. IMPRESSION: Mild degenerative changes. Reviewed, Interpreted and Dictated by Ivory Sanz MD Transcribed by Mary Hines Authenticated and [facility]
[2024-01-26 12:48] LABS: Basophils # 0.3 K/mm3 (0-0.2); Eosinophils # 0.7 K/mm3 (0.0-0.4); Eosinophils % 5.1 % (0.1-12.0); Hematocrit 46.1 % (42.0-52.0); Hemoglobin 14.8 g/dL (14.1-18.0); Lymphocytes # 3.7 K/mm3 (0.7-4.5); Lymphocytes % 27.2 % (10-50); Mean Corpuscular HGB Conc 32.1 g/dL (31.8-35.4); Mean Corpuscular Hemoglobin 31.3 pg (27.0-31.2); Mean Corpuscular Volume 97.5 fl (80-94); Mean Platelet Volume 8.7 fl (7.4-10.4); Monocytes # 0.7 K/mm3 (0.1-1.0); Monocytes % 4.9 % (1.7-9.3); Neutrophils # 8.2 K/mm3 (1.8-7.8); Neutrophils % 60.7 % (37.0-80.0); Platelet Count 313 K/mm3 (142-424); Red Blood Count 4.73 M/mm3 (4.60-6.20); Red Cell Distribution Width 14.7 % (11.5-17.5); White Blood Count 13.5 K/mm3 (4.8-10.8)
[2024-01-26 13:45] LABS: Uric Acid 5.3 mg/dl (3.5-8.5)
== END 2024-01-26 23:59 | disposition home or self-care (01) ==
LOC: LAB 12:28
PROVIDERS: PCP Nurse Practitioner Family; Visit Provider Nurse Practitioner Family
DX: M25.532 Pain in left wrist (principal); M25.432 Effusion, left wrist; M79.89 Other specified soft tissue disorders
CPT/HCPCS: 36415; 73110; 73120; 84550; 85025

== ENCOUNTER 2024-02-29 18:10 | Outpatient (CLI) | payer OTHER, SELFPAY ==
--- NOTE | 2024-02-29 18:11 | MR_ITS ---
PROCEDURE INFORMATION: Exam: MR Left Upper Extremity Joint Without Contrast; Wrist Exam date and time: 02/29/2024 6:44 PM Age: 63 years old Clinical indication: Pain; Wrist; Left; Additional info: Left wrist pain, swelling, decreased rom TECHNIQUE: Imaging protocol: Magnetic resonance imaging of the left upper extremity without contrast. Exam focused on the wrist. COMPARISON: 1. CR XR WRIST LT MIN 3V 01/26/2024 12:54 PM 2. CR XR HAND LT 2V 01/26/2024 12:54 PM FINDINGS: Limitations: Absence of an axial fat suppressed sequence. Motion artifact. Bones/joints: There is mild primary osteoarthritis of the thumb carpometacarpal joint. There is no acute fracture or dislocation. No aggressive bone lesions are present. Mild complex joint effusions involve the wrist. A marginal erosion versus subchondral cyst involves the volar ulnar side of the distal radius and dorsal aspect the second metacarpal base. Scapholunate ligament: Unremarkable. No tear. Lunotriquetral ligament: Unremarkable. No tear. Triangular fibrocartilage complex: Unremarkable. No tear. Flexor compartment tendons: Unremarkable. No tear. Extensor compartment tendons: Unremarkable. No tear. Soft tissues: Mild soft tissue edema surrounding the wrist is nonspecific. A multiloculated 0.9 x 0.6 cm fluid collection along the volar aspect of the ulnar styloid process appears to be decompressing from the wrist proximal carpal row joint space. IMPRESSION: 1. Multifocal mild complex joint effusions involving the wrist. 2. Marginal erosions versus subchondral cysts involving the distal radius and second metacarpal base. 3. Mild primary osteoarthritis of the thumb carpometacarpal joint.
== END 2024-02-29 23:59 | disposition home or self-care (01) ==
LOC: RAD 18:11
PROVIDERS: PCP Nurse Practitioner Family; Visit Provider Nurse Practitioner Family
DX: M25.532 Pain in left wrist (principal); M25.432 Effusion, left wrist; M25.632 Stiffness of left wrist, not elsewhere classified
CPT/HCPCS: 73221

== ENCOUNTER 2024-09-07 15:13 | Outpatient (CLI) | payer MEDICARE, SELFPAY ==
[2024-09-07 15:46] LABS: Basophils # 0.2 K/mm3 (0-0.2); Basophils % 1.2 % (0.1-2.0); Eosinophils # 0.7 K/mm3 (0.0-0.4); Eosinophils % 5.7 % (0.1-12.0); Hemoglobin 14.6 g/dL (14.1-18.0); Lymphocytes # 4.3 K/mm3 (0.7-4.5); Lymphocytes % 35.3 % (10-50); Mean Corpuscular Hemoglobin 30.5 pg (27.0-31.2); Mean Platelet Volume 10.1 fl (7.4-10.4); Monocytes # 0.9 K/mm3 (0.1-1.0); Monocytes % 7.6 % (1.7-9.3); Neutrophils % 49.5 % (37.0-80.0); Platelet Count 326 K/mm3 (142-424); Red Blood Count 4.78 M/mm3 (4.60-6.20); Red Cell Distribution Width 14.7 % (11.5-17.5); White Blood Count 12.2 K/mm3 (4.8-10.8)
[2024-09-07 16:04] LABS: Alanine Aminotransferase 24 U/L (12-78); Albumin Level 4.7 g/dl (3.5-5.0); Alkaline Phosphatase 81 U/L (38-126); Anion Gap 17.9 mEq/L (5-15); Aspartate Amino Transferase 27 U/L (17-59); Bilirubin,Direct 0.2 mg/dl (0.0-0.4); Bilirubin,Total 0.2 mg/dl (0.2-1.3); Bilirubin,Unconjugated 0.1 mg/dL (0.0-1.1); Blood Urea Nitrogen 20 mg/dl (9-20); Calcium 10.2 mg/dl (8.4-10.2); Carbon Dioxide 21 mmol/L (22.0-30.0); Chloride 104 mmol/L (98-107); Chol/HDL Ratio 5.4 (1-3.5); Cholesterol 238 mg/dl (140-200); Estimated Glomerular Filt Rate 61 ml/min (>60); GFR (African American) 74 ML/MIN (>60); Glucose 105 mg/dl (74-100); HDL Cholesterol 44 mg/dl (40-60); Potassium 4.9 mmoL/L (3.5-5.1); Sodium 138 mmol/L (136-145); Total Protein,Serum 7.8 g/dl (6.3-8.2)
[2024-09-07 16:13] LABS: Triglycerides 437 mg/dl (30-150)
[2024-09-07 16:15] LABS: Direct LDL Cholesterol 117.92 mg/dL (100-129)
[2024-09-07 16:20] LABS: Free T4 (Free Thyroxine) 1.22 ng/dl (0.78-2.19)
[2024-09-07 16:29] LABS: Hemoglobin A1C 4.8 % (4.0-6.0)
[2024-09-07 16:37] LABS: Thyroid Stimulating Hormone 3.52 uIU/mL (0.465-4.68)
[2024-09-07 16:56] LABS: Vitamin B12 238 pg/mL (239-931)
== END 2024-09-07 23:59 | disposition home or self-care (01) ==
LOC: LAB 15:15
PROVIDERS: PCP Nurse Practitioner Family; Visit Provider Nurse Practitioner Family
DX: Z79.4 Long term (current) use of insulin (principal); E11.9 Type 2 diabetes mellitus without complications; I73.9 Peripheral vascular disease, unspecified; Z72.0 Tobacco use; I11.9 Hypertensive heart disease without heart failure; I45.2 Bifascicular block; I25.10 Atherosclerotic heart disease of native coronary artery without angina pectoris; Z12.5 Encounter for screening for malignant neoplasm of prostate; E78.49 Other hyperlipidemia
CPT/HCPCS: 36415; 80048; 80061; 80076; 82607; 83036; 83735; 84439; 84443; 85025; G0103

== ENCOUNTER 2024-12-08 12:31 | Outpatient (CLI) | payer MEDICARE, SELFPAY ==
[2024-12-08 14:05] LABS: T4 (Thyroxine) 10.4 ug/dl (5.53-11.0)
[2024-12-08 14:06] LABS: Free T4 (Free Thyroxine) 1.18 ng/dl (0.78-2.19)
[2024-12-08 14:19] LABS: Thyroid Stimulating Hormone 4.66 uIU/mL (0.465-4.68)
[2024-12-08 14:38] LABS: Vitamin B12 740 pg/mL (239-931)
[2024-12-09 08:24] LABS: Triiodothyronine (T3) Free 2.7 pg/mL (2.0-4.4)
[2024-12-12 13:22] LABS: Intrinsic Factor Abs, Serum 0.9 AU/mL (0.0-1.1)
== END 2024-12-08 23:59 | disposition home or self-care (01) ==
LOC: LAB 12:32
PROVIDERS: PCP Nurse Practitioner Family; Visit Provider Nurse Practitioner Family
DX: E53.8 Deficiency of other specified B group vitamins (principal); E03.9 Hypothyroidism, unspecified
CPT/HCPCS: 36415; 82607; 84436; 84439; 84443; 84481; 86340

== ENCOUNTER 2025-03-30 14:39 | Outpatient (CLI) | payer MEDICARE, SELFPAY ==
--- OUTSIDE RECORDS SUMMARY | 2025-03-30 14:43 | XMS_ITS | Clinical Summary ---
Author Organization Healthcare Address [address] [place] [address] Care Team Providers Care Alcoholism Worker Name Role Phone Unavailable Primary Care Provider Unavailabl e Social History Tobacco Use Types Packs/Day Years Used Date Smoking Tobacco: Every Day Sex and Gender Information Value Date Recorded Sex Assigned at Not on file Legal Sex Male 7:30 PM EDT Gender Identity Not on file Sexual Orientation Not on file Last Filed Vital Signs Vital Sign Reading Time Taken Comments Blood Pressure - - Pulse - - Temperature - - Respiratory Rate - - Oxygen Saturation - - Inhaled Oxygen Concentration - - Weight 97.8 kg (215 lb 9.1 oz) 09/02/2016 9:40 A M EST Height 177.8 cm (5' 10 ) 09/02/2016 9:40 AM EST Body Mass Index 30.93 09/02/2016 9:40 AM EST Plan of Treatment Not on file
--- NOTE | 2025-03-30 14:46 | XR_ITS ---
PROCEDURE INFORMATION: Exam: XR Left Knee Exam date and time: 03/30/2025 2:47 PM Age: 64 years old Clinical indication: Pain; Knee; Left; Prior surgery; Surgery date: 6+ months; Surgery type: Tendons repaired many years ago; Additional info: Knee pain after jumping off tractor 5 days ago TECHNIQUE: Imaging protocol: Radiologic exam of the left knee. Views: 3 views. COMPARISON: No relevant prior studies available. FINDINGS: Bones/joints: No acute fracture or dislocation. Mild primary osteoarthritis at the medial and patellofemoral compartments. Patellar traction spurs. No significant joint effusion. No evidence of lipohemarthrosis. Soft tissues: Mild soft tissue swelling over the patellar tendon. IMPRESSION: No acute fracture is identified.
== END 2025-03-30 23:59 | disposition home or self-care (01) ==
LOC: RAD 14:41
PROVIDERS: PCP Nurse Practitioner Family; Visit Provider Physician Assistant Surgical
DX: M17.12 Unilateral primary osteoarthritis, left knee (principal); M79.89 Other specified soft tissue disorders; M77.8 Other enthesopathies, not elsewhere classified
CPT/HCPCS: 73562

== ENCOUNTER 2025-05-01 15:45 | Outpatient (CLI) | payer MEDICARE, SELFPAY ==
--- OUTSIDE RECORDS SUMMARY | 2025-05-01 15:48 | XMS_ITS | Clinical Summary ---
Author Organization Healthcare Address [address] [place] [address] Care Team Providers Care Primary Care Md Name Role Phone Unavailable Primary Care Provider [...]
--- NOTE | 2025-05-01 16:00 | MR_ITS ---
PROCEDURE INFORMATION: Exam: MR Left Lower Extremity Joint Without Contrast, Knee Exam date and time: 05/01/2025 3:57 PM Age: 64 years old Clinical indication: Left knee pain x 7 weeks. Swelling. Lateral side pain. Prior patella ligament repair TECHNIQUE: Imaging protocol: Magnetic resonance imaging of the left lower extremity joint without contrast. Exam focused on the knee. COMPARISON: CR XR KNEE LT 3V 03/30/2025 2:47 PM FINDINGS: Bones/joints: Post repair changes at the proximal patellar ligament with associated susceptibility artifact. Moderate osteophyte/enthesophyte formation at the anterior inferior patellar pole. Note also made of increased thickening, heterogeneous signal, mild intrasubstance and surrounding edema of the ligament, most prominently proximal 50%, suggestive of a combination of granulation tissue/healing changes, scarring, and tendinosis. Moderate to severe thinning of cartilage in the medial compartment weight-bearing zone, without distinct subchondral edema. Mild cartilage thinning and fissuring in the lateral compartment weight-bearing zone, most prominently posteriorly. Patella and trochlear cartilage unremarkable. Trace suprapatellar and infrapatellar effusion. Fat pads of knee: [id number]-ph-[id number] diffuse edema in Hoffa's fat pad. Bursae: Trace prepatellar bursal fluid. Medial meniscus: Medial meniscus anterior horn and body with mild volume loss and mild intrasubstance degeneration. Moderate intrasubstance degeneration and volume loss in the medial meniscus posterior body and horn, with complex degenerative tear in the posterior body and horn, extending in the undersurface towards the root attachment. A component of these findings may be post interventional. Recommend correlation. Lateral meniscus: Lateral meniscus is intact, with mild diffuse intrasubstance degeneration. Anterior cruciate ligament: ACL is intact. Apparent mild thinning of ACL fibers may represent normal baseline versus sequelae of partial-thickness tear. Otherwise unremarkable. Posterior cruciate ligament: PCL is intact. Medial capsule and supporting structures: Unremarkable. No tear. Lateral capsule and supporting structures: Unremarkable. No tear. Extensor mechanism of knee: Significantly less prominent, similar findings are present at the distal quadriceps tendon.. Soft tissues: Trace prepatellar bursal fluid. Bursitis may be present. Recommend correlation. IMPRESSION: 1. Post repair changes at the proximal patellar ligament with associated susceptibility artifact. Moderate osteophyte/enthesophyte formation at the anterior inferior patellar pole. Note also made of increased thickening, heterogeneous signal, mild intrasubstance and surrounding edema of the ligament, most prominently proximal 50%, suggestive of a combination of granulation tissue/healing changes, scarring, and tendinosis. Mild superimposed infection not excluded. Recommend correlation. 2. Moderate intrasubstance degeneration and volume loss in the medial meniscus posterior body and horn, with complex degenerative tear in the posterior body and horn, extending in the undersurface towards the root attachment. A component of these findings may be post interventional. Recommend correlation. 3. Trace prepatellar bursal fluid. Bursitis may be present. Recommend correlation.
== END 2025-05-01 23:59 | disposition home or self-care (01) ==
LOC: RAD 15:47
PROVIDERS: PCP Nurse Practitioner Family; Visit Provider Physician Assistant Surgical
DX: S83.232A Complex tear of medial meniscus, current injury, left knee, initial encounter (principal); M25.762 Osteophyte, left knee; R93.6 Abnormal findings on diagnostic imaging of limbs; R60.0 Localized edema; M17.12 Unilateral primary osteoarthritis, left knee; S76.119A Strain of unspecified quadriceps muscle, fascia and tendon, initial encounter; Z98.890 Other specified postprocedural states
CPT/HCPCS: 73721

== ENCOUNTER 2025-07-06 12:32 | Emergency (ER) | payer MEDICARE, SELFPAY ==
--- NOTE | 2025-07-06 12:45 | ED_ITS ---
<Statement entered by Puneet Spivey MD - 07/06/25 17:35> I was consulted by the HERMINIA, and we discussed the complexity of the problems being addressed. I approve the treatment and management plan for this patient's care in the emergency department, thus performing a substantive portion of the medical decision making. Puneet Spivey MD Discharge Plan Disposition Patient Disposition: Eloped Prescriptions Prescriptions: No Action betamethasone, augmented 0.05 % ointment 1 applic topical BID 14 Days Qty: 15 0RF insulin glargine U-300 conc 300 unit/mL (1.5 mL) insulin pen 10 unit SQ DAILY Qty: 4.5 0RF hydrocodone-acetaminophen 7.5-325 mg tablet 1 tab PO Q4-6H PRN (Reason: pain) Qty: 30 0RF Ozempic 0.25 mg or 0.5 mg (2 mg/3 mL) pen injector 0.5 mg SQ WEEKLY 30 Days Qty: 3.68 2RF Rx Instructions: for 4 weeks triamcinolone acetonide 0.1 % cream 1 applic topical TID 10 Days Qty: 80 0RF albuterol sulfate 90 mcg/actuation HFA aerosol inhaler 2 puff inhalation Q4-6H PRN (Reason: shortness of breath or wheezing) Qty: 6.7 0RF Rx Instructions: Prescribed in Airsupra is not covered Airsupra 90-80 mcg/actuation HFA aerosol inhaler 2 inh inhalation 6XD PRN (Reason: shortness of breath or wheezing) Qty: 10.7 0RF metronidazole 500 mg tablet 500 mg PO Q8H 10 Days Qty: 30 0RF sulfamethoxazole-trimethoprim 800-160 mg tablet 1 tab PO BID 10 Days Qty: 20 0RF olopatadine [Pataday Once Daily Relief] 0.2 % drops 1 drp ophthalmic (eye) DAILY PRN (Reason: itching) Qty: 2.5 2RF amlodipine [Norvasc] 10 mg tablet 10 mg PO DAILY Qty: 90 1RF carvedilol 3.125 mg tablet 3.125 mg PO BID Qty: 180 1RF losartan 100 mg tablet 100 mg PO DAILY Qty: 90 1RF clopidogrel 75 mg tablet See Rx Instructions .ROUTE .COMPLEX Qty: 90 3RF Dose Instruction: TAKE 1 TABLET BY MOUTH ONCE DAILY Rx Instructions: TAKE 1 TABLET BY MOUTH ONCE DAILY levothyroxine 137 mcg tablet See Rx Instructions .ROUTE .COMPLEX Qty: 90 1RF Dose Instruction: TAKE ONE (1) TABLET BY MOUTH ONCE DAILY Rx Instructions: TAKE ONE (1) TABLET BY MOUTH ONCE DAILY colchicine 0.6 mg tablet 0.6 mg PO BID PRN (Reason: gout) Qty: 30 2RF Rx Instructions: Take 1.2 mg now x 1 dose then 0.6 mg one hour later x 1 dose. Take 0.6 mg twice daily thereafter. indomethacin 50 mg capsule 50 mg PO BID PRN (Reason: gout ) Qty: 30 0RF Rx Instructions: administer with food or milk aspirin 81 mg tablet,chewable 1 tab PO DAILY Referrals Follow up/Referrals: Tamar Anne APRN [Primary Care Provider, Medical] - See instructions Clinical Impressions Clinical Impression: Eloped from emergency department Print Language Print Language: Gabonese Discharge ED Provider: Puneet Spivey Adult HPI General Stated complaint: AO 07/05 @1400 Dog Bite Right Hand Time Seen by Provider: 07/06/25 12:45 History of Present Illness HPI narrative: 64-year-old male presents emergency department requesting x-ray at the instruction of urgent care. He states that he broke up a fight between his 2 vaccinated dogs last night. He states one of the dogs accidentally bit his right hand. He was seen in urgent care prior to come to the emergency department where they have prescribed him antibiotics and updated his tetanus. He states they told him to come here to have an x-ray to make sure that his hand did not sustain any fractures. Patient has not take any medication for pain prior to arrival. Related Data Home Medications ?Medication ?Instructions ?Recorded ?Confirmed aspirin 81 mg chewable tablet 1 tab PO DAILY CAD 09/1407/06/25 Previous Rx's ?Medication ?Instructions ?Recorded semaglutide 0.25 mg or 0.5 mg (2 0.5 mg (0.736 mL) SQ WEEKLY 30 11/08/23 mg/3 mL) subcutaneous pen injector days #3.68 mL (Ozempic) triamcinolone acetonide 0.1 % 1 applic topical TID 10 days #80 11/26/23 topical cream grams olopatadine 0.2 % eye drops 1 drp ophthalmic (eye) LUIS MIGUEL LY PRN 02/22/24 (Pataday Once Daily Relief) itching #2.5 mL albuterol 90 mcg-budesonide 80 2 inh inhalation 6XD WI N shortness 08/07/24 mcg/actuation HFA aerosol inhaler of breath or wheezin g #10.7 grams (Airsupra) albuterol sulfate 90 mcg/actuation 2 puff inhalation Q 4-6H PRN 08/07/24 aerosol inhaler shortness of breath or wheez ing #6.7 grams betamethasone, augmented 0.05 % 1 applic topical BID 1 4 days #15 12/08/24 topical ointment grams insulin glargine U-300 conc 300 10 unit (0.0333 mL) SQ DAILY #4.5 12/08/24 unit/mL (1.5 mL) subcutaneous pen mL amlodipine 10 mg tablet (Norvasc) 10 mg PO DAILY #90 t abs 01/22/25 carvedilol 3.125 mg tablet 3.125 mg PO BID #180 tabs 0 03/26/25 losartan 100 mg tablet 100 mg PO DAILY #90 tabs hydrocodone 7.5 mg-acetaminophen 1 tab PO Q4-6H PRN pa in #30 tabs 03/30/25 325 mg tablet clopidogrel 75 mg tablet See Rx Instructions .Route 0 05/07/25 .COMPLEX #90 tabs levothyroxine 137 mcg tablet See Rx Instructions .Rout e 06/15/25 .COMPLEX #90 tabs colchicine 0.6 mg tablet 0.6 mg PO BID PRN gout #30 t abs 06/26/25 indomethacin 50 mg capsule 50 mg PO BID PRN gout #30 caps 06/27/25 metronidazole 500 mg tablet 500 mg PO Q8H 10 days #30 tabs 07/06/25 sulfamethoxazole 800 1 tab PO BID 10 days #20 tab s 07/06/25 mg-trimethoprim 160 mg tablet Allergies Allergy/AdvReac Type Severity Reaction Status Date / Time Penicillins Allergy Mild Unknown Verified 07/06/25 11:28 allergy reaction [id number] Reductase AdvReac Intermediate Muscle Pain Verified 07/06/25 11:28 Inhibitor PFSH PFSH Disclaimer: The information contained in this section may have been updated after the patient was seen, as this information can be updated by other users. Medical History Hypertension Diastolic dysfunction CAD in [place] artery HHD (hypertensive heart disease) HLD (hyperlipidemia) Claudication Right bundle branch block (RBBB) Tobacco abuse Diabetes Edema of both legs PAD (peripheral artery disease) Surgical History Status post peripheral artery angioplasty with insertion of stent 2018 Social History Smoking Status: Current every day smoker alcohol intake: former substance use type: denies use current occupational status: retired and disabled Travel in the last 8 weeks?: None Have you lived/traveled outside US in past 30 days?: No Contact w/someone who lives/traveled outside US past 30 days?: No Exposure to someone with infectious disease in past 14 days?: No Do you have a fever (greater than 100.4 F or 38 C)?: No Have you tested positive for COVID-19?: No Exposed to someone with COVID-19 in past 14 days?: No Do you have a sore throat?: No Do you have a cough?: No Do you have any weakness?: No Do you have any diarrhea?: No Are you experiencing any unusual bleeding?: No Do you have any muscle aches/pain?: No Do you have any abdominal pain?: No Are you experiencing loss of taste or smell?: No Other Medical History Have you received the Flu Vaccine for this season: Yes Have you received the Pneumonia Vaccine: No ROS Obtained: Yes other Musculoskeletal Musculoskeletal: Reports stiffness and Reports other (Pain in right hand) Integumentary/Breasts Skin/Breast: Reports wounds Physical Exam Narrative Physical exam: General: Awake, aware, in no acute distress HEENT: Normocephalic, no evidence of trauma CV: RRR, no murmurs, rubs, or gallops Pulm: CTA bilaterally with no rhonchi, rales, wheezes ABD: Nontender, no swelling, guarding, or rebound tenderness Psych, appropriate mood and affect Musculoskeletal: Patient with swelling to his right hand. He has several puncture wounds on his right hand as well. No bleeding or drainage noted from the wounds. There is mild erythema. Patient with decreased range of motion. Sensation is intact. Patient with 2+ pulses General General appearance: alert Respiratory Respiratory exam: Present normal lung sounds bilaterally Cardiovascular Cardiovascular exam: Present regular rate Neurological Exam Neurological exam: Present alert Medical Decision Making Medical Records Screening: Per USPSTF and CDC recommendations, given the prevalence of disease in our region, it is our hospital?s policy to screen for HIV and viral Hepatitis for all patients aged 18 and over and those with ongoing risk factors. Bryn Inquiry Pt receiving controlled substance: No Orders (Tests/Meds): ED MEDICATIONS Discontinued Medications Generic Name Dose Route Start Last Admin Trade Name Lacy PRN Reason Stop Dose Admin Naproxen 500 mg 07/06/25 12:51 Naproxen 500mg Tablet PO 07/06/25 12:52 ONCE ONE Medical Decision Narrative: Initial impression of presenting illness: 64-year-old male presents to the emergency department with complaints of dog bite to his right hand. He states that his 2 vaccinated dogs got into a fight last night and while he was trying to break them up one of them accidentally cut his right hand. He was seen in urgent care this morning where they updated his tetanus and started him on antibiotics however they sent him here for an x-ray to rule out fracture. Differential diagnosis includes but is not limited to: Cellulitis, foreign body, fracture, puncture Patient arrives hemodynamically stable, afebrile, without respiratory distress with vital signs interpreted by myself. Initial physical exam reveals several puncture wounds to patient's right hand with mild erythema and swelling. Range of motion is limited. Sensations intact with 2+ pulses. Rest of exam is unremarkable. Initial diagnostic plan: X-ray of right hand, naproxen for pain control As I was waiting on the report from patient's x-ray, nursing staff informed me that patient was not supposed to be seen in the emergency department instead he was sent over for outpatient x-rays. Patient was removed from our system and left the emergency department prior to me getting the radiology reports back. Critical Care Critical Care Time Critical Care Time: No
--- OUTSIDE RECORDS SUMMARY | 2025-07-06 12:48 | XMS_ITS | Clinical Summary ---
Author Organization Healthcare Address [address] [place] [address] Care Team Providers Care Medical Unit Secretary Name Role Phone Unavailable Primary Care Provider [...]
--- NOTE | 2025-07-06 13:09 | PC.NURSE ---
When nurse took medication to patient, patient informed nurse that he was not supposed to be registered for the ER, that he was supposed to come to the hospital for an outpatient X-ray. States he has an order from [facility] for x-ray and told registration staff of this. Patient advised that he is going to leave and register as outpatient to have x-ray done. Registration states that they cannot take patient off ER status at this time, since he has already been registered.
== END 2025-07-06 13:12 | disposition left against medical advice (07) ==
LOC: ER 12:47
PROVIDERS: Emergency Provider Student in an Organized Health Care Education/Training Program; PCP Nurse Practitioner Family
DX: Z53.21 Procedure and treatment not carried out due to patient leaving prior to being seen by health care provider (principal)
CPT/HCPCS: 99211

== ENCOUNTER 2025-07-06 13:09 | Outpatient (CLI) | payer MEDICARE, SELFPAY ==
--- OUTSIDE RECORDS SUMMARY | 2025-07-06 13:15 | XMS_ITS | Clinical Summary ---
Author Organization Healthcare Address [address] [place] [address] Care Team Providers Care Digital Media Intern Name Role Phone Unavailable Primary Care Provider [...]
--- NOTE | 2025-07-06 13:19 | XR_ITS ---
FINAL REPORT CLINICAL HISTORY: dog bite yesterday, pain & scratches FINDINGS: AP, oblique, and lateral views of the left hand were obtained. There is no prior exam for comparison. There is no acute fracture of the left hand. Degenerative joint disease is noted of the first CMC joint. No acute soft tissue abnormality. No radiopaque foreign body. IMPRESSION: No acute osseous abnormality of the left hand. No foreign body. Reviewed, Interpreted and Dictated by Chika Dumas MD Transcribed by Mary Hines Authenticated and . [facility]
--- NOTE | 2025-07-06 13:19 | XR_ITS ---
FINAL REPORT CLINICAL HISTORY: Dog bite yesterday, pain & scratches FINDINGS: AP, lateral and oblique views of the right hand were obtained. There is no prior exam for comparison. There is no acute fracture or dislocation. Multijoint degenerative disease is most pronounced at the first MCP joint. There is soft tissue edema along the dorsum of the hand at the level of the MCP joints. No radiopaque foreign body identified. IMPRESSION: No acute osseous abnormality of the right hand. Soft tissue edema without foreign body. Reviewed, Interpreted and Dictated by Chika Dumas MD Transcribed by Mary Hines Authenticated and [facility]
== END 2025-07-06 23:59 | disposition home or self-care (01) ==
LOC: RAD 13:14
PROVIDERS: PCP Nurse Practitioner Family; Visit Provider Student in an Organized Health Care Education/Training Program
DX: M19.042 Primary osteoarthritis, left hand (principal); M19.041 Primary osteoarthritis, right hand; W54.0XXA Bitten by dog, initial encounter
CPT/HCPCS: 73130

== ENCOUNTER 2025-07-13 12:16 | Outpatient (CLI) | payer MEDICARE, SELFPAY ==
[2025-07-13 12:35] LABS: Hemoglobin A1C 6.4 % (4.0-6.0)
[2025-07-13 12:42] LABS: Alanine Aminotransferase 33 U/L (12-78); Albumin Level 4.8 g/dl (3.5-5.0); Albumin/Globulin Ratio 1.2 (1.1-1.8); Alkaline Phosphatase 78 U/L (38-126); Anion Gap 14.3 mEq/L (5-15); Aspartate Amino Transferase 34 U/L (17-59); Bilirubin,Total 0.5 mg/dl (0.2-1.3); Blood Urea Nitrogen 18 mg/dl (9-20); Calcium 10.2 mg/dl (8.4-10.2); Carbon Dioxide 20 mmol/L (22.0-30.0); Chloride 102 mmol/L (98-107); Cholesterol 176 mg/dl (140-200); Creatinine,Serum 1.30 mg/dl (0.66-1.25); Estimated Glomerular Filt Rate 56 ml/min (>60); GFR (African American) 67 ML/MIN (>60); Globulin 3.9 g/dL (1.3-3.2); Glucose 112 mg/dl (74-100); HDL Cholesterol 43 mg/dl (40-60); Magnesium 2.3 mg/dl (1.6-2.3); Potassium 5.3 mmoL/L (3.5-5.1); Sodium 131 mmol/L (136-145); Total Protein,Serum 8.7 g/dl (6.3-8.2); Triglycerides 281 mg/dl (30-150)
[2025-07-13 13:15] LABS: Thyroid Stimulating Hormone 3.08 uIU/mL (0.465-4.68)
[2025-07-13 13:33] LABS: Vitamin B12 268 pg/mL (239-931)
== END 2025-07-13 23:59 | disposition home or self-care (01) ==
LOC: LAB.DROPOF 12:17
PROVIDERS: PCP Nurse Practitioner Family; Visit Provider Nurse Practitioner Family
DX: E11.9 Type 2 diabetes mellitus without complications (principal); E53.8 Deficiency of other specified B group vitamins
CPT/HCPCS: 80053; 80061; 82607; 83036; 83735; 84443